=== PATIENT | male | born 1955 | race Hispanic/Latino ===

== ENCOUNTER 2017-07-13 06:34 | Emergency (ER) | payer OTHER ==
[2017-07-13] MEDS ORDERED: Sodium Chloride 0.9% 1,000 ML IV ONE ×2 (07:33→10:42)
[2017-07-13] MEDS ORDERED: Pantoprazole 40 mg EC Tab PO STA (07:33)
[2017-07-13] MEDS ORDERED: Sodium Chloride 0.9% 1,000 ML ONE ×2 (07:37→10:52)
[2017-07-13 08:08] LABS: BASO # 0.1 K/uL (0.0-0.2); BASO % 0.9 % (0.0-2.0); EOS # 0.3 K/uL (0.0-0.7); EOS % 3.7 % (0.0-4.0); HEMOGLOBIN 16.3 g/dL (12.0-18.0); LYMPH # 1.1 K/uL (1.0-4.3); LYMPH % 11.7 % (20.0-40.0); MEAN CELL VOLUME 95.8 fL (80.0-94.0); MEAN CORPUSCULAR HEMOGLOBIN 33.7 pg (27.0-31.0); MEAN CORPUSCULAR HGB CONC 35.2 g/dL (33.0-37.0); MEAN PLATELET VOLUME 10.1 fL (7.2-11.7); MONO # 0.5 K/uL (0.0-0.8); MONO % 5.4 % (0.0-10.0); NEUT # 7.5 K/uL (1.8-7.0); NEUT % 78.3 % (50.0-75.0); NRBC % 0.1 % (0.0-2.0); RBC 4.84 Mil/uL (4.40-5.90); RED CELL DISTRIBUTION WIDTH 13.6 % (11.5-14.5); WHITE BLOOD COUNT 9.6 K/uL (4.8-10.8)
[2017-07-13 08:13] LABS: ALB/GLOB RATIO 1.4 (1.0-2.1); ALBUMIN 4.8 g/dL (3.5-5.0); ALT/SGPT 62 U/L (21-72); AMYLASE 135 U/L (30-110); AST/SGOT 53 U/L (17-59); BLOOD UREA NITROGEN 13 mg/dL (9-20); CALCIUM 9.5 mg/dl (8.6-10.4); GFR AFRICAN-AMERICAN > 60; GFR NON-AFRICAN AMERICAN > 60; LIPASE 134 U/L (23-300)
--- NOTE | 2017-07-13 08:24 | C.PDOC ---
History Of Present Illness 61 yo male come in for evaluation of sudden onset of chills, bodyaches associated with intractable non-bilious, non-bloody vomiting and watery diarrhea #4-5 since this AM. Otherwise pt denies headache, dizziness, cough, CP , SOB, dyspnea, diaphoresis, hemaemesis, melena, back pain, UTI sx, denies recent travel or known sick contact. Ambulate to Ed for evaluation, appears in pain. Time Seen by Provider: 07/13/17 07:14 Chief Complaint (Nursing): GI Problem History Per: Patient Onset/Duration Of Symptoms: Sudden Onset Past Medical History Reviewed: Historical Data, Nursing Documentation, Vital Signs Vital Signs: Last Vital Signs Temp 98.4 F 07/13/17 16:36 Pulse 85 07/13/17 16:36 Resp 20 07/13/17 16:36 BP 160/90 H 07/13/17 16:36 Pulse Ox 100 07/13/17 16:53 - Medical History PMH: Denies: Chronic Kidney Disease Family History: States: No Known Family Hx - Social History Hx Alcohol Use: Yes (BEER) Hx Substance Use: Yes (MARIJUANA) - Immunization History Hx Tetanus Toxoid Vaccination: No Hx Influenza Vaccination: Yes Hx Pneumococcal Vaccination: No Review Of Systems Except As Marked, All Systems Reviewed And Found Negative. Constitutional: Positive for: Chills, Malaise. Negative for: Fever ENT: Negative for: Throat Pain Cardiovascular: Negative for: Chest Pain, Palpitations, Light Headedness Respiratory: Negative for: Cough, Shortness of Breath Gastrointestinal: Positive for: Nausea, Vomiting, Abdominal Pain, Diarrhea. Negative for: Melena, Hematochezia, Hematemesis Genitourinary: Negative for: Dysuria, Incontinence Musculoskeletal: Negative for: Neck Pain, Back Pain Skin: Negative for: Rash Neurological: Negative for: Weakness, Numbness, Altered Mental Status, Headache , Dizziness Physical Exam - Physical Exam Appears: Well, Non-toxic, Other (in pain) Skin: Normal Color, Warm, Dry, No Rash Eye(s): bilateral: PERRL Nose: No Flaring, No Discharge Oral Mucosa: Moist, No Drooling Tongue: Normal Appearing Lips: Normal Appearing Throat: Normal, No Erythema, No Drooling Neck: Trachea Midline, Supple Cardiovascular: Rhythm Regular, No Murmur, No JVD Respiratory: No Decreased Breath Sounds, No Accessory Muscle Use, No Stridor, No Wheezing Gastrointestinal/Abdominal: Soft, Tenderness (mild epigastric ), No Distention, No Guarding, No Rebound Back: No CVA Tenderness Extremity: Normal ROM, No Deformity, No Swelling Neurological/Psych: Oriented x3, Normal Speech ED Course And Treatment - Laboratory Results Result Diagrams: 07/13/17 07:56 07/13/17 07:56 Lab Interpretation: No Acute Changes ECG: Interpreted By Me, Viewed By Me Interpretation Of ECG: Sinus leonard@59/min, NAD, no acute T wave or ST-T changes O2 Sat by Pulse Oximetry: 100 Pulse Ox Interpretation: Normal - CT Scan/US CT CHEST/ABD/PELVIS Other Rad Studies (CT/US): Radiology Report Reviewed CT/US Interpretation: IMPRESSION: No evidence of abdominal aortic aneurysm or dissection. Changes very minor partially calcified plaque changes and some minimal thrombus within the thoracic aorta as above. There also partially calcified atherosclerotic plaque and thrombus changes within the abdominal aorta extending into the iliac arteries with mild localized dilatation of both proximal iliac arteries as above. Hepatomegaly with moderate fatty hepatic infiltration. Mild enlargement right adrenal gland. Small to medium size hiatal hernia. Progress Note: At 13:56,. Pt was OBS in ED for 6 hours. On re-eval, pt reports only mild improvement in pain. Pt still appears pale. Otherwise, pt is Afebrile, hemdoynamicaly s table. PuslEOx 99% RA. CVS: (+)S1S2, reg, (-) murmur. Abd: (+) diffuse tenderness. Neurologicaly intact. case discussed with , diagnostics and imaging review. Pt was evaluated by and admission recommend. Case discussed with Hospitalist, lactic acid added, will re-eval. At 16:40, pt is sitting up on bed now, reports ' feel much better". Pt was given PO challenge, tolerate well. Afebrile, hemodynamicaly stable. Non -toxic. Ambulatoyr in ED with stable gait. Neck: Supple. Lungs: CTA B/L, BS equal B/L. CVS: (+)S1S2, reg. Abd: benign, (-)guarding, (-) rebound, (-) localized tenderness now. back: (-) CVA tenderness. neuorlogicaly intact. Lactic acid- negative,. case discussed with again and discahshalini with outpt f/u recommend at this time. Results review and discussed with pt. Pt agrees with plan. ref. to f/u with PMD in 1-2 dyas for re-eval. return to ED at any time if any worsening or new changes. Pt understand and agrees with plan. Disposition Counseled Patient/Family Regarding: Studies Performed, Diagnosis, Need For Followup, Rx Given - Disposition Referrals: Monet Cruz APN [Advanced Practice Nurse] - Disposition: HOME/ ROUTINE Disposition Time: 16:43 Condition: STABLE Additional Instructions: ENCOURAGE FLUIDS DIET RESTRICTION FOR 1-2 DAYS, AVOID MILK, YOGURT BRAT DIET- BANANA, RICE, APPLE SAUCE, TOAST FOLLOW UP WITH PMD IN 1-2 DAYS FOR RE-EVALUATION. RETURN TO ED IF ANY WORSENING OR NEW CHANGES. Prescriptions: Famotidine [Pepcid] 20 mg PO BID #10 tab Ondansetron ODT [Zofran ODT] 1 odt PO BID PRN #6 odt PRN Reason: Nausea/Vomiting Instructions: Acute Nausea and Vomiting (ED), Acute Diarrhea (ED) Forms: [facility] (Sinhala) - Clinical Impression Clinical Impression: Vomiting, Diarrhea, Epigastric abdominal pain
[2017-07-13 10:31] LABS: SQUAMOUS EPITHIAL 1 /hpf (0-5); URINE BACTERIA RARE (<OCC); URINE BILIRUBIN NEGATIVE (NEGATIVE); URINE BLOOD 1+ (NEGATIVE); URINE CLARITY Clear (Clear); URINE COLOR Straw (YELLOW); URINE GLUCOSE (UA) 1+ mg/dL (Normal); URINE LEUKOCYTE ESTERASE NEG Leu/uL (Negative); URINE NITRATE NEGATIVE (NEGATIVE); URINE PROTEIN NEGATIVE (NEGATIVE); URINE UROBILINOGEN NORMAL mg/dL (0.2-1.0)
[2017-07-13 10:35] VITALS: RESP 20
[2017-07-13] MEDS ORDERED: Morphine 4 MG/ML VIAL ONE (10:52)
[2017-07-13] MEDS ORDERED: Iodixanol 320 MG/ML 100 ML BOTTLE IV ONE (11:24)
--- NOTE | 2017-07-13 13:25 | CT ---
PROCEDURE: CT Angiography Chest, Abdomen and Pelvis with and without intravenous contrast HISTORY: Severe epigastric pain, vomiting COMPARISON: Comparison made with prior dissection study 01/10/2012. The the the the TECHNIQUE: Contiguous axial images of the chest, abdomen and pelvis were obtained in the phase of aortic enhancement. A noncontrast enhanced CT of the chest was also obtained to evaluate for possible intramural thrombus. Coronal and sagittal reformats were generated. IV dose administered: 100 cc Visipaque 320 contrast material Radiation dose: Total exam DLP = 2001.78 mGy-cm. This CT exam was performed using one or more of the following dose reduction techniques: Automated exposure control, adjustment of the mA and/or kV according to patient size, and/or use of iterative reconstruction technique. FINDINGS: CT ANGIOGRAPHY OF THE CHEST WITH & WITHOUT CONTRAST: AORTA (CHEST AND ABDOMEN): The thoracic and abdominal aorta are unremarkable, without aneurysm, dissection or rupture. No intramural thrombus identified in the thoracic aorta on the non-contrast ct of the chest. The Ascending thoracic aorta measures approximately 2.9 cm and descending thoracic aorta measures approximately 2.65 cm. No evidence of aortic aneurysm or dissection. . Minor partially calcified atherosclerotic plaque changes are seen along the aortic arch and descending thoracic aorta. . There appears to be some minimal thrombus within the mid descending thoracic aorta. Partially calcified atherosclerotic plaque also noted along abdominal aorta with minor intramural thrombus. The celiac axis, superior mesenteric artery, inferior mesenteric artery and the renal arteries are widely patent. . Minor localized on dilatation both proximal iliac arteries (on the right measuring approximately 1.94 cm and on the left measuring approximately 1.76 cm. LUNGS: Mild passive/dependent type atelectasis both posterior lower lung zones. No focal consolidation. No large parenchymal masses. No obvious nodules MEDIASTINUM: Heart size is within range of normal. No significant pericardial effusion. Pulmonary trunk measures approximately 2.6 cm No significant mediastinal or hilar adenopathy. There is a small to medium size hiatal hernia with slight wall thickening of the distal esophagus likely due to protrusion of gastric mucosa. Possibility of esophagitis not excluded. Central airways are midline and patent. No large central endoluminal lesions. LYMPH NODES: Unremarkable. PLEURA: Unremarkable. No pneumothorax. No pleural fluid. BONES: Mild multilevel degenerative spondylosis of the thoracic spine no acute compression fractures no retropulsed fragments. The the OTHER FINDINGS: None. CT ANGIOGRAPHY OF THE ABDOMEN AND PELVIS WITH CONTRAST: LIVER: Liver is mildly enlarged measuring over 19 cm in CC dimension. . The moderate the diffuse fatty hepatic infiltration GALLBLADDER AND BILE DUCTS: Unremarkable. PANCREAS: Unremarkable. No gross lesion or ductal dilatation. SPLEEN: Spleen exhibits normal size and attenuation pattern without mass collection or calcification. ADRENALS: Mildly enlarged right adrenal gland. KIDNEYS AND URETERS: Unremarkable. No hydronephrosis. No solid mass. VASCULATURE: Unremarkable. No aortic aneurysm. STOMACH AND BOWEL: Unremarkable. No obstruction. No gross mural thickening. APPENDIX: Normal appendix. PERITONEUM: Unremarkable. No free fluid. No free air. There is a small right inguinal hernia that contains soft tissue (possibly granulation tissue or scar) and fluid. LYMPH NODES: Unremarkable. No enlarged lymph nodes. BLADDER: Mild wall thickening of the urinary bladder likely due to incomplete distention and muscular hypertrophy. Cystitis in a male patient would be less likely. Other intrinsic wall abnormality not excluded. Correlation with urinalysis. The REPRODUCTIVE: Prostate gland not contains multiple small calcifications. BONES: Mild multilevel degenerative spondylosis of the lumbar spine. There are small sclerotic foci both femoral heads and right acetabulum likely representing small bone islands or osteomas. OTHER FINDINGS: None. IMPRESSION: No evidence of abdominal aortic aneurysm or dissection. Changes very minor partially calcified plaque changes and some minimal thrombus within the thoracic aorta as above. There also partially calcified atherosclerotic plaque and thrombus changes within the abdominal aorta extending into the iliac arteries with mild localized dilatation of both proximal iliac arteries as above. Hepatomegaly with moderate fatty hepatic infiltration. Mild enlargement right adrenal gland. Small to medium size hiatal hernia.
[2017-07-13 16:36] VITALS: BP 160/90; PULSE 85; TEMP 98.4
[2017-07-13 16:45] VITALS: O2SAT 100
--- NOTE | 2017-07-13 20:52 | CARD ---
APPROVED REPORT EKG Measurement Heart [id number] <Conclusion> Sinus bradycardia Otherwise normal ECG
== END 2017-07-13 17:26 | disposition home or self-care (01) ==
LOC: C.ER 06:34
DX: R11.10 Vomiting, unspecified (principal); R10.13 Epigastric pain; R19.7 Diarrhea, unspecified
CPT/HCPCS: 71275; 74175; 80053; 81001; 82150; 83605; 83690; 84484; 85025; 87040; 93005; 96361; 96374; 96375; 99285; J1885; J2270; J2405; J2765; J7040; Q9967